=== PATIENT | female | born 1995 | race Caucasian/White ===

== ENCOUNTER 2017-08-21 20:54 | Emergency (ER) | payer BC, OTHER, SELFPAY ==
[2017-08-21 21:32] VITALS: BP 113/72; PULSE 101; RESP 15; TEMP 36.8; O2SAT 100; BMI 23.9
[2017-08-22] VITALS: BP 115/75; PULSE 72; RESP 14; O2SAT 100
[2017-08-22] MEDS: SODIUM CHLORIDE 0.9% 1,000 ML 1000 ML IV (00:02)
[2017-08-22] MEDS: ONDANSETRON 4 MG/2 ML INJ IV (00:02)
[2017-08-22 00:06] LABS: Add Manual Diff / Slide Review NO; Basophils Percent Auto 0.8 % (0-2); Eosinophils Percent Auto 5.3 % (2-4); Hematocrit 39.1 % (36-46); Hemoglobin 13.4 g/dL (12.0-16.0); Lymphocytes Percent Auto 39.6 % (25-40); Mean Corpuscular HGB Conc 34.2 % (30-36); Mean Corpuscular Volume 90.6 fL (80-100); Monocytes Percent Auto 7.1 % (3-14); Neutrophils Absolute Auto 4100 /uL (3000-5900); Neutrophils Percent Auto 47.2 % (50-75); Platelet Count 218 X10^3/uL (150-400); Red Blood Cell Count 4.31 X10^6/uL (4.0-5.2); Red Cell Distribution Width 12.2 % (11.6-14.8); White Blood Cell Count 8.8 X10^3/uL (4.5-11.0)
[2017-08-22 00:19] LABS: Alanine Aminotransferase 23 IU/L (9-52); Albumin 4.1 g/dL (3.5-5.0); Albumin Globulin Ratio 1.3 (1.0-2.8); Alkaline Phosphatase 38 U/L (38-126); Aspartate Aminotransferase 24 IU/L (14-36); BUN Creatinine Ratio 14.3 (6-22); Bilirubin Total 0.8 mg/dL (0.2-1.3); Blood Urea Nitrogen 10 mg/dL (7-17); Calcium 9.2 mg/dL (8.4-10.2); Carbon Dioxide 20 mmol/L (22-32); Chloride 107 mmol/L (98-107); Estimated Glomerular Filt Rate > 60.0 mL/min (>60); Globulin 3.1 g/dL (1.7-4.1); Glucose 89 mg/dL (70-100); HEMOLYSIS 27 (0-50); Lipase 51 U/L (23-300); Sodium 140 mmol/L (137-145); Total Protein 7.2 g/dL (6.3-8.2)
--- NOTE | 2017-08-22 02:20 | PC.NURSE ---
at for evaluation
--- NOTE | 2017-08-22 02:37 | DI.CT.S_ITS ---
PROCEDURE: CT ABDOMEN PELVIS W CON INDICATIONS: low abdominal and right sided pain TECHNIQUE: After the administration of intravenous contrast, 5 mm thick sections acquired from the diaphragm to the symphysis. 5 mm coronal and sagittal reformats were acquired. For radiation dose reduction, the following was used: automated exposure control, adjustment of mA and/or kV according to patient size. COMPARISON: None. FINDINGS: Image quality: Excellent. ABDOMEN: Lung bases: Lung bases are clear. Heart size is normal. Solid organs: Liver is normal in size and enhancement. Gallbladder contains a 1.1 cm gallstone.. Biliary system is non dilated. Pancreas enhances normally. Spleen is normal in size and enhancement. No adrenal nodules. Kidneys demonstrate normal size and enhancement, without hydronephrosis. Peritoneum and bowel: Bowel loops demonstrate normal wall thickness and caliber. No free air. Trace free fluid noted in the cul-de-sac of the pelvis which is within physiologic limits. The appendix is normal. Nodes and vessels: No retroperitoneal or mesenteric adenopathy by size criteria. Aorta and inferior vena cava are normal in size. Miscellaneous: No ventral hernias. PELVIS: Genitourinary: Bladder wall thickness is normal. 2.7 cm right adnexal region cyst. 2.0 cm left adnexal region cyst. Miscellaneous: No inguinal hernias or adenopathy. Bones: No suspicious bony lesions. No vertebral body compression fractures. IMPRESSION: 1. The appendix is normal. 2. Cholelithiasis. If there is clinical concern for cholecystitis, then abdominal ultrasound should be considered for further evaluation. 3. Bilateral adnexal cysts. Dictated by: Jaquelin Pacheco MD, PhD on 08/22/2017 at 7:37 Approved by: Jaquelin Pacheco MD, PhD on 08/22/2017 at 7:42
--- NOTE | 2017-08-22 05:33 | ED_ITS ---
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 Patient denies fevers, chills, continues pass flatus and stool at baseline. M/S/F/SocHx notable for: please see HPI; remainder reviewed with patient and in chart. ROS: Negative constitutional, eye, cardiovascular, pulmonary, GI, , MSK, skin , neurologic, psychiatric, endocrine unless noted in the HPI. Exam Gen: Pleasant, non-toxic appearing, resting comfortably. HEENT: NC, AT, PEERL, EOMI. Resp: Clear to auscultation bilaterally, normal work of breathing, no accessory muscle usage. Card: Regular rate and rhythm with no murmurs, rubs, or gallops, extremities warm and well perfused. GI: mild right greater than left lower abdominal tenderness palpation, remainder of abdomen nontender to palpation, no rebound, no guarding. : No suprapubic tenderness to palpation. MSK: No visible deformities, strength and tone without visually appreciable deficit. Skin: Normal color with no visible lesions. Neuro: AO x 3, no facial asymmetry, vision and hearing WNL. Psych: Mood and affect appropriate. Labs / Imaging: negative urine test. UA negative nitrate, negative leukocyte esterase WBC 8.8, HB 13.4, sodium 140, potassium 4.0, total bilirubin 0.8, AST 24, ALT 23 , ALP 38, lipase 51 CT abdomen/pelvis: cholelithiasis without evidence of cholecystitis. MDM Previous chart, nursing note, labs, imaging, and vitals reviewed. 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 DDx: acute appendicitis, mesenteric adenitis, biliary disease pancreatitis, UTI , ureterolithiasis, gastritis, Gerd, Evaluation: CT abdomen and pelvis without evidence of acute disease, CBC, CMP, lipase WNL, UA without evidence infection, negative urine test. Repeat evaluation patient noted that instead of lower abdominal and right-sided discomfort she was experiencing were predominantly nausea and heartburn type feeling of last 4 days. Trial of ranitidine and Maalox recommended. Patient discharged with PCP follow-up recommended. Impression: suspected GERD (please reference below for remainder of encounter information) Related Data Previous Rx's Medication Instructions Recorded levonorgestrel-ethinyl estrad 1 tab PO QDAY #3 packet 09/24/16 [Lutera (28)] meclizine 25 mg PO TID PRN #21 tab 05/08/17 Allergies Allergy/AdvReac Type Severity Reaction Status Date / Time No Known Drug Allergies Allergy Verified 08/21/17 21:32 PFSH Family History Father Age: 44 High cholesterol Grandfather Heart disease Hypertension Grandmother Age: 65 Lung cancer Social History Smoking Status: Never smoker Exam Initial Vital Signs Initial Vital Signs: Vital Signs Temperature 98.2 F 08/21/17 21:32 Pulse Rate 101 H 08/21/17 21:32 Respiratory Rate 15 08/21/17 21:32 Blood Pressure 113/72 08/21/17 21:32 Pulse Oximetry 100 08/21/17 21:32 Course Orders Ordered: ED Orders 08/22/17 00:01 Complete Blood Count AUTO DIFF Stat Comprehensive Metabolic Panel Stat Lipase Stat 08/22/17 02:37 CT abdomen pelvis w con Stat Discontinued Medications Sodium Chloride (Normal Saline 0.9%) 1,000 mls @ 1,000 mls/hr IV BOLUS ONE Stop: 08/22/17 01:00 Last Infusion: 08/22/17 01:05 Dose: 1,000 mls/hr Admin: 08/22/17 00:02 Dose: 1,000 mls/hr Ondansetron HCl (Zofran) 4 mg IV NOW ONE Stop: 08/22/17 00:01 Last Admin: 08/22/17 00:02 Dose: 4 mg Vital Signs - 8 hr 07/05/18 00:00 Pulse Rate 72 Respiratory Rate 14 Blood Pressure [Left Arm] 115/75 Pulse Oximetry 100 MDM - Abdominal Pain Lab Data Result diagrams: 08/22/17 00:01 08/22/17 00:01 Lab Results 08/22/17 08/22/17 Range/Units 00:01 00:01 WBC 8.8 (4.5-11.0) X10^3/uL RBC 4.31 (4.0-5.2) X10^6/uL Hgb 13.4 (12.0-16.0) g/dL Hct 39.1 (36-46) % MCV 90.6 (80-100) fL MCH 31.0 (26-34) PG MCHC 34.2 (30-36) % RDW 12.2 (11.6-14.8) % Plt Count 218 (150-400) X10^3/uL Neut % (Auto) 47.2 L (50-75) % Lymph % (Auto) 39.6 (25-40) % Crockett % (Auto) 7.1 (3-14) % Eos % (Auto) 5.3 H (2-4) % Baso % (Auto) 0.8 (0-2) % Neut # (Auto) 4100 (5965-2148) /uL Sodium 140 (137-145) mmol/L Potassium 4.0 (3.4-5.1) mmol/L Chloride 107 (98-107) mmol/L Carbon Dioxide 20 L (22-32) mmol/L BUN 10 (7-17) mg/dL Creatinine 0.70 (0.52-1.04) mg/dL Estimated GFR > 60.0 (>60) mL/min BUN/Creatinine Ratio 14.3 (6-22) Glucose 89 (70-100) mg/dL Calcium 9.2 (8.4-10.2) mg/dL Total Bilirubin 0.8 (0.2-1.3) mg/dL AST 24 (14-36) IU/L ALT 23 (9-52) IU/L Alkaline Phosphatase 38 (38-126) U/L Total Protein 7.2 (6.3-8.2) g/dL Albumin 4.1 (3.5-5.0) g/dL Globulin 3.1 (1.7-4.1) g/dL Albumin/Globulin Ratio 1.3 (1.0-2.8) Lipase 51 (23-300) U/L Point of care testing: Point of Care Testing Test Results Negative Urine Dip Bedside Urine Glucose Negative Bedside Urine Bilirubin - Negative Bedside Urine Ketone - Negative Urine Specific Soldier 1.020 Bedside Urine Occult Blood - Negative Bedside Urine pH 6.0 Bedside Urine Protein - Negative Bedside Urine Urobilinogen - Negative Bedside Urine Nitrite - Negative Bedside Urine Leukocytes - Negative Esterase Discharge Plan Departure Prescriptions: No Action levonorgestrel-ethinyl estrad [Lutera (28)] 1 EACH tablet 1 tab PO QDAY Qty: 3 RF: 3 meclizine 25 MG tablet 25 mg PO TID PRNQty: 21 RF: 0
[2017-08-22 05:54] VITALS: BP 102/59; PULSE 64; RESP 17; TEMP 36.3; O2SAT 98
--- NOTE | 2017-08-22 05:56 | PC.NURSE ---
[id number] velasco still awaiting the ct results pt. aware
== END 2017-08-22 05:55 | disposition home or self-care (01) ==
PROVIDERS: Emergency Provider Emergency Medicine
DX: R10.9 Unspecified abdominal pain (principal)
CPT/HCPCS: 36591; 74177; 80053; 81003; 81025; 83690; 85025; 96361; 96374; 99283; 99285; J2405; Q9967

== ENCOUNTER → 2017-08-27 16:19 | Outpatient (CLI) | payer BC, OTHER, SELFPAY ==
[2017-08-27 19:38] LABS: Urine N gonorrhoeae NOT DETECTED
[2017-08-27 19:45] LABS: Urine Chlamydia NOT DETECTED
[2017-09-02 16:10] LABS: Rapid Plasma Reagin NON-REACTIVE
== END ==
PROVIDERS: Visit Provider Nurse Practitioner Family
DX: R10.30 Lower abdominal pain, unspecified (principal)
CPT/HCPCS: 36415; 86592; 87491; 87591

== ENCOUNTER → 2017-09-06 13:04 | Outpatient (CLI) | payer BC, OTHER, SELFPAY ==
--- NOTE | 2017-09-06 13:05 | DI.US.S_ITS ---
PROCEDURE: US PELVIC COMPLETE INDICATIONS: PAIN TECHNIQUE: Real-time scanning was performed of the pelvic organs, with image documentation. Additional endovaginal scanning was necessary due to incomplete visualization of the adnexal and endometrial structures by transabdominal scanning. COMPARISON: None. FINDINGS: Transabdominal scanning: Limited scanning through the kidneys shows no hydronephrosis. The kidneys measure 10.1 CM right and 10.6 CM left. No pathologic free abdominal or pelvic fluid. Endovaginal scanning: Uterus: Uterus is normal in size at 4.5 x 4.5 x 6.4 cm. The endometrium measures 6.4 mm in combined thickness. Ovaries: The right ovary measures 23 x 25 x 38 mm and contains a simple cyst measuring 21 x 24 x 34 mm. The left ovary appears normal measuring 11 x 14 x 21 mm. IMPRESSION: 1. Normal uterus and left ovary. Right ovary contains a 3.4 cm simple cyst. Dictated by: Sukhjinder Brown M.D. on 09/06/2017 at 15:23 Approved by: Sukhjinder Brown M.D. on 09/06/2017 at 15:24
== END ==
PROVIDERS: Visit Provider Nurse Practitioner Family
DX: R10.30 Lower abdominal pain, unspecified (principal); N83.291 Other ovarian cyst, right side
CPT/HCPCS: 76830; 76856

== ENCOUNTER → 2019-01-01 15:19 | Outpatient (CLI) | payer BC, OTHER, SELFPAY ==
--- NOTE | 2019-01-01 15:20 | DI.US.S_ITS ---
ULTRASOUND OF RIGHT AXILLA: 01/01/2019 CLINICAL: Focal right axilla pain. No prior exams were available for comparison. Real-time ultrasound of the right axilla was performed on the area of interest. No significant abnormalities were seen sonographically in the right axilla. IMPRESSION: NEGATIVE There is no sonographic evidence of malignancy. There is no abnormality seen in the right axilla to correspond with the pain in the right axilla, however, clinical followup is recommended. This exam was interpreted at Station ID: [id number]. Electronically Signed By: Lazarus gonzalez/melanie:01/01/2019 15:45:01 letter sent: Clinical Evaluation Ultrasound BI-RADS: 1 Negative
== END ==
PROVIDERS: PCP Family Medicine; Visit Provider Family Medicine
DX: M79.621 Pain in right upper arm (principal)
CPT/HCPCS: 76882

== ENCOUNTER → 2020-10-27 17:39 | Outpatient (CLI) | payer BC, SELFPAY ==
[2020-10-27 18:29] LABS: COVID19 -Nasal RAPID POSITIVE (Negative)
== END ==
PROVIDERS: PCP Family Medicine; Visit Provider Nurse Practitioner
DX: U07.1 COVID-19 (principal)
CPT/HCPCS: 87635

== ENCOUNTER → 2022-10-08 12:53 | Outpatient (CLI) | payer BC, SELFPAY ==
[2022-10-08 13:38] LABS: Add Manual Diff / Slide Review NO; Basophils Absolute Auto 0 /uL (0-100); Basophils Percent Auto 0.5 % (0-2); Eosinophils Absolute Auto 100 /uL (0-450); Eosinophils Percent Auto 1.4 % (2-4); Hematocrit 35.9 % (36-46); Hemoglobin 12.5 g/dL (12.0-16.0); Lymphocytes Absolute Auto 1900 /uL (1100-4500); Lymphocytes Percent Auto 19.3 % (25-40); Mean Corpuscular HGB Conc 34.9 % (30-36); Mean Corpuscular Hemoglobin 30.7 PG (26-34); Monocytes Absolute Auto 600 /uL (0-900); Monocytes Percent Auto 6.1 % (3-14); Neutrophils Absolute Auto 7300 /uL (1500-7000); Neutrophils Percent Auto 72.7 % (50-75); Platelet Count 265 X10^3/uL (150-400); Red Blood Cell Count 4.08 X10^6/uL (4.0-5.2); Red Cell Distribution Width 12.5 % (11.6-14.8)
[2022-10-08 14:06] LABS: Appearance Urine UA CLEAR; Bilirubin Urine UA NEGATIVE (NEGATIVE); Color Urine UA YELLOW; Glucose Urine UA NEGATIVE (Negative); Ketones Urine UA NEGATIVE (NEGATIVE); Leukocyte Esterase Urine UA NEGATIVE (NEGATIVE); Nitrite Urine UA NEGATIVE (Negative); Occult Blood Urine UA NEGATIVE (Negative); Protein Urine UA NEGATIVE (Negative); Urobilinogen Urine UA 0.2 E.U./dL (0.2)
[2022-10-08 14:18] LABS: pH Urine UA 6.5 (4.5-8.0)
[2022-10-08 14:51] LABS: Hepatitis B Surface Antigen NEGATIVE s/c (NEGATIVE); Rubella Antibody IgG 15.4 IU/mL (>15)
[2022-10-08 15:14] LABS: HIV 1 & 2 Ab/Ag 4th Gen Combo NEGATIVE (NEGATIVE); Hep C Virus Ab w/Reflex Quant NEGATIVE s/c (NEGATIVE)
[2022-10-09 06:27] LABS: RPR Screen Non Reactive (Non Reactive)
[2022-10-09 12:36] LABS: Varicella IgG Antibody 1545 index (Immune >165)
== END ==
PROVIDERS: PCP Family Medicine; Referring Provider Family Medicine; Visit Provider Family Medicine
DX: Z34.01 Encounter for supervision of normal first pregnancy, first trimester (principal)
CPT/HCPCS: 36415; 80055; 81003; 86787; 86803; 86850; 86900; 86901; 87086; 87389

== ENCOUNTER → 2022-12-06 15:59 | Outpatient (CLI) | payer BC, SELFPAY ==
[2022-12-08 19:57] LABS: AFP, Serum 28.5 ng/mL (.); Estriol, Free 1.72 ng/mL (.); Inhibin A, Dimeric 238.42 pg/mL (.); Maternal Ethnicity Caucasian (.); Maternal Weight 153 lbs (.); Number of Fetuses No (.); OSBR Risk 1 IN 10000 (.); Results Report (.); Test Results *Screen Negative* (.); hCG, MoM 1.63 (.)
== END ==
PROVIDERS: PCP Family Medicine; Referring Provider Obstetrics & Gynecology; Visit Provider Obstetrics & Gynecology
DX: Z34.02 Encounter for supervision of normal first pregnancy, second trimester (principal); Z3A.16 16 weeks gestation of pregnancy
CPT/HCPCS: 36415; 82105; 82677; 84702; 86336

== ENCOUNTER → 2022-12-24 08:04 | Outpatient (CLI) | payer BC, SELFPAY | PROVIDERS: PCP Family Medicine; Visit Provider Nurse Practitioner Family | DX: J02.9 Acute pharyngitis, unspecified (principal) | CPT/HCPCS: 87070; 87185 ==

== ENCOUNTER → 2023-01-01 14:48 | Outpatient (CLI) | payer BC, SELFPAY ==
--- NOTE | 2023-01-01 14:49 | DI.US.S_ITS ---
PROCEDURE: US OB >= 14 WEEKS FETUS INDICATIONS: ANATOMY OUTSIDE/PRIOR DATING DATA: Last menstrual period (LMP): 08/12/2022 LMP-based estimated date of delivery (BOWEN): 05/19/2023. First dating scan (date and location): 10/08/2022. Estimated date of delivery (BOWEN) from first dating scan: 05/16/2023. TECHNIQUE: Real-time scanning was performed of the fetus, with image documentation and biometric measurements. COMPARISON: None. FINDINGS: General: A single living intrauterine gestation is present. Presentation: Vertex. Placenta: Placental position is anterior , without previa. Amniotic fluid index: 18.6 cm, normal range is 5-24 cm. Single deepest vertical pocket is 5.9 cm. heart rate: 141 beats per minute. Maternal cervical canal: 5.5 cm long. Normal lower limit is 2.5 cm. biometrics: Biparietal diameter: 21 weeks 6 days Head circumference: 21 weeks 3 days Abdominal circumference: 20 weeks 4 days Femur length: 21 weeks 4 days Clinically estimated gestational age: 20 weeks 2 days Composite gestational age from present scan: 21 weeks 3 days Estimated weight and percentile: 402 g; 80 percentile Anatomic survey: Neuro: Ventricles are non-dilated at less than 10 mm. Cisterna magna is normal at 3-11 mm. Cerebellum is normal in size and morphology. Nuchal skin fold: Normal at less than 6 mm between 14-21 weeks gestational age. Face: The facial profile as suboptimally visualized and micrognathia cannot entirely be excluded. Spine: No evidence for spina bifida. Mild irregularity seen on the sagittal view of the lower cervical spine of unclear etiology. Heart: 4-chambered heart is present, with normal ventricular outflow tracts. Diaphragm: Diaphragm is intact. Stomach: Left-sided stomach is present. Kidneys: No hydronephrosis. Normal is less than 5 mm in 2nd trimester, less than 7 mm in 3rd trimester. Cord: 3-vessel cord has orthotopic insertion. Marginal placental cord insertion site 1.7 cm from the right placental edge. Bladder: Normal in size. Extremities: All 4 extremities identified. IMPRESSION: 1. Single living IUP redemonstrated and interval growth is upper limits of normal. 2. Facial profile suboptimally visualized and micrognathia cannot entirely be excluded. Follow-up recommended. 3. Mild irregularity seen on the sagittal view involving the lower cervical spine which may be artifactual. Attention on follow-up is recommended. We strive to produce accurate, complete, and clear reports of imaging services. To assist us in improving patient care, this report was composed using standard report templates and voice recognition software. Therefore, it may contain abnormal punctuation, insertions and/or omissions. Occasional wrong-word or sound-alike substitutions may occur. Though we review the report and make efforts to correct it, we do recommend that the report be read carefully in proper context to recognize any text inaccuracies. Dictated by: Ashutosh COFFEY Interpreted: Maylin Emery MD on 01/03/2023 at 15:18 Transcribed by: HODA on 01/03/2023 at 15:25 Approved by: Maylin Emery M.D. on 01/03/2023 at 22:41
== END ==
PROVIDERS: PCP Family Medicine; Referring Provider Obstetrics & Gynecology; Visit Provider Obstetrics & Gynecology
DX: Z34.02 Encounter for supervision of normal first pregnancy, second trimester (principal); Z3A.21 21 weeks gestation of pregnancy
CPT/HCPCS: 76811

== ENCOUNTER → 2023-01-25 16:52 | Outpatient (CLI) | payer BC, SELFPAY ==
--- NOTE | 2023-01-25 16:53 | DI.US.S_ITS ---
PROCEDURE: US OB FOLLOW UP INDICATIONS: Incomplete 20 week anatomy scan OUTSIDE/PRIOR DATING DATA: Last menstrual period (LMP): 08/12/2022. LMP-based estimated date of delivery (BOWEN): 05/19/2023. First dating scan (date and location): 10/08/2022 at . Estimated date of delivery (BOWEN) from first dating scan: 05/16/2023. The calculations are made using the working BOWEN of 05/19/2023. TECHNIQUE: Real-time scanning was performed of the fetus, with image documentation and biometric measurements. COMPARISON: [facility], , OB >= 14 WEEKS FETUS, 01/01/2023, 15:33. FINDINGS: General: A single living intrauterine gestation is present. Presentation: Vertex. Placenta: Placental position is anterior, without previa. Amniotic fluid index: 14.8 cm, normal range is 5-24 cm. Single deepest vertical pocket is 4.6 cm. heart rate: 147 beats per minute. Maternal cervical canal: 3.4 cm long. Normal lower limit is 2.5 cm. biometrics: Not performed Clinically estimated gestational age: 23 weeks 5 days Other: face: facial structures including facial profile, lips and orbits are grossly normal. spine: Hypoechoic area in C7 persists. Placental cord insertion: Cord insertion now measures 2.1 cm from the placental edge. IMPRESSION: 1. A single living intrauterine gestation redemonstrated. 2. Normal facial profile, orbits and lips. 3. Hypoechoic area in the area of C7 persists. Clinical significance uncertain. 4. Cord insertion to placenta now measures 2.1 cm from the placental edge. We strive to produce accurate, complete, and clear reports of imaging services. To assist us in improving patient care, this report was composed using standard report templates and voice recognition software. Therefore, it may contain abnormal punctuation, insertions and/or omissions. Occasional wrong-word or sound-alike substitutions may occur. Though we review the report and make efforts to correct it, we do recommend that the report be read carefully in proper context to recognize any text inaccuracies. Dictated by: Vj Juarez M.D. on 01/27/2023 at 20:00 Approved by: Vj Juarez M.D. on 01/28/2023 at 9:28
== END ==
PROVIDERS: PCP Family Medicine; Referring Provider Obstetrics & Gynecology; Visit Provider Obstetrics & Gynecology
DX: Z34.92 Encounter for supervision of normal pregnancy, unspecified, second trimester (principal); Z3A.23 23 weeks gestation of pregnancy
CPT/HCPCS: 76816

== ENCOUNTER → 2023-02-15 09:30 | Outpatient (CLI) | payer BC, SELFPAY ==
[2023-02-15 11:24] LABS: Hematocrit 34.4 % (36-46)
[2023-02-15 11:40] LABS: GTT (PREG) 1 Hour PP 50gm Dose 118 mg/dL (76-139)
== END ==
PROVIDERS: PCP Family Medicine; Referring Provider Obstetrics & Gynecology; Visit Provider Obstetrics & Gynecology
DX: O26.899 Other specified pregnancy related conditions, unspecified trimester (principal); Z3A.26 26 weeks gestation of pregnancy; Z67.91 Unspecified blood type, Rh negative
CPT/HCPCS: 36415; 82950; 85014; 85018; 86850

== ENCOUNTER 2023-04-15 15:28 | Observation (INO) | payer BC, SELFPAY ==
[2023-04-15 16:17] LABS: Appearance Urine UA CLEAR; Bilirubin Urine UA NEGATIVE (NEGATIVE); Color Urine UA YELLOW; Glucose Urine UA NEGATIVE (Negative); Ketones Urine UA NEGATIVE (NEGATIVE); Leukocyte Esterase Urine UA NEGATIVE (NEGATIVE); Nitrite Urine UA NEGATIVE (Negative); Occult Blood Urine UA NEGATIVE (Negative); Protein Urine UA NEGATIVE (Negative); Specific Gravity Urine UA <=1.005 (1.000-1.035); Urobilinogen Urine UA 0.2 E.U./dL (0.2)
[2023-04-15 16:18] LABS: pH Urine UA 5.5 (4.5-8.0)
[2023-04-15 16:26] LABS: Bacteria Urine Few (2-10); Culture Indicated Urine Cult Not Indicated; RBC Urine 0-1/HPF (0-5/HPF); Squamous Epithelial Cell Urine 10-30 /HPF (0-5/HPF); Urine Volume 10mL (spun); WBC Urine 1-5/HPF (0-5/HPF)
[2023-04-15] MEDS: NIFEdipine 10 MG CAPSULE PO ×4 (16:40→17:51)
[2023-04-15] MEDS: TERBUTALINE 1 MG/ML VIAL 0.25 MG SUBCUT (18:28)
== END 2023-04-15 19:33 | disposition home or self-care (01) ==
LOC: LABOR 15:29
PROVIDERS: Admitting Provider Obstetrics & Gynecology; PCP Family Medicine; Referring Provider Obstetrics & Gynecology; Visit Provider Obstetrics & Gynecology
DX: O60.03 Preterm labor without delivery, third trimester (principal); Z3A.35 35 weeks gestation of pregnancy
CPT/HCPCS: 59025; 59050; 81001; 96372; G0378; G0379

== ENCOUNTER → 2023-04-24 07:52 | Outpatient (CLI) | payer BC, SELFPAY ==
[2023-04-25 12:32] LABS: Strep Grp B PCR NEG for Grp B Strep
== END ==
PROVIDERS: PCP Family Medicine; Visit Provider Obstetrics & Gynecology
DX: Z34.03 Encounter for supervision of normal first pregnancy, third trimester (principal); Z3A.36 36 weeks gestation of pregnancy
CPT/HCPCS: 87653

== ENCOUNTER → 2023-04-29 13:58 | Outpatient (CLI) | payer BC, SELFPAY ==
--- NOTE | 2023-04-29 | DI.US.S_ITS ---
PROCEDURE: US OB LIMITED INDICATIONS: LGA OUTSIDE/PRIOR DATING DATA: Last menstrual period (LMP): 08/12/2022. LMP-based estimated date of delivery (BOWEN): 05/19/2023. First dating scan (date and location): 10/08/2022. Estimated date of delivery (BOEWN) from first dating scan: 05/16/2023. The calculations are made using the clinical BOWEN of 05/19/2023. TECHNIQUE: Real-time scanning was performed of the fetus, with image documentation. COMPARISON: [facility], , OB FOLLOW UP, 01/25/2023, 17:21. FINDINGS: A single living intrauterine gestation is present. Presentation: Vertex. Placenta: Placental position is anterior, without previa. Amniotic fluid index: 24 cm, normal range is 5-24 cm. Single deepest vertical pocket is 10.2 cm. heart rate: 128 beats per minute. Maternal cervical canal: Not assessed cm long. BPD: 9.5 cm 38 weeks 5 days HC: 34 cm 39 weeks 1 day AC: 35 cm 38 weeks 4 days FL: 7.7 cm 39 weeks 4 days Clinically estimated gestational age: 37 weeks 1 day Estimated gestational age from initial scan: 39 weeks 0 days estimated weight 3616 g, 92nd percentile IMPRESSION: Single live intrauterine with gestational age of 39 weeks 0 days. Fluid is prominent measuring 24 cm. Recommend follow-up for polyhydramnios. Dictated by: Maylin Emery M.D. on 04/29/2023 at 16:51 Approved by: Maylin Emery M.D. on 04/29/2023 at 16:55
== END ==
LOC: US 13:59
PROVIDERS: PCP Family Medicine; Referring Provider Obstetrics & Gynecology; Visit Provider Obstetrics & Gynecology
DX: O26.843 Uterine size-date discrepancy, third trimester (principal); Z3A.39 39 weeks gestation of pregnancy
CPT/HCPCS: 76815

== ENCOUNTER 2023-05-13 15:51 | Inpatient (IN) | payer BC, SELFPAY ==
--- NOTE | 2023-05-13 18:13 | PM.OBHP.1 ---
OB HPI Date/Time Date of admission: 05/13/23 Date Patient Seen: 05/13/23 Time Patient Seen: 17:13 History of Present Condition Chief complaint: ROM : 1 Para: 0 Estimated Date of Delivery: 05/19/23 Estimated Gestational Age (weeks): 39w1d Narrative: Lillian Patricio is a 28 year old F at 39w1d EGA presenting with ROM at home. She laid down in bed when she noticed a large gush of water. ROM was at 15:18, fluid was clear. She is feeling occassional tightening of the abdomen but doesnt feel that this is much different than Chris Quarles. She is hoping to labor without epidural and wants to avoid Pitocin if possible. has been complicated by LGA and RH negative status s/p Rhogam at 28 wks. EFW was 3616g at 37w1d GA, placing her at 92%ile. ADY was 24cm (upper limit of normal) at that time and a f/up US was recommend to assess for risk of polyhydramnios. Indications Other reason(s) for admission: Rupture of membranes History of Present care: good care Dating criteria: LMP confirmed by 1st trimester US Ultrasounds: normal 1st trimester US and normal mid trimester US Abnormal ultrasound findings: EFW was 3616g at 37w1d GA, placing her at 92%ile. ADY was 24cm (upper limit of normal) at that time and a f/up US was recommend to assess for risk of polyhydramnios. Obstetrical complications: none Medical complications: none Preadmission Labs Blood type: 0 (-) negative -: GBS status: negative, HBsAG: negative and HIV: negative -: Chlamydia screen: not detected and Gonorrhea screen: not detected -: Rubella: immune and Varicella: immune HCT: 12 HCAB: negative 1 hr GTT: 118 Evaluation Evaluation Baseline heart rate: 130 Variability: Moderate (11-25) monitor accelerations: Present Monitor Decelerations: Absent Contraction Frequency (minutes): 10 Uterine Contraction Intensity: Moderate Category of Tracing: Reactive Status: Category l Dilation (cm): 1 Effacement (%): 80 Dilation: 1-2 cm Effacement: >/=80% station: -1 Position of cervix: posterior Consistency: soft Woodall score: 8 Comments: Nitrazine positive, grossly ruptured PFSH Medical History Allergies Asthma (2001) Chicken pox Fractures (2007) Gastroschisis (93) HPV (human papilloma virus) infection (~2016) Ovarian cyst (~2018) Shoulder pain (2014) Surgical History Anesthesia 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) History of tonsillectomy Family History Father Age: 49 High cholesterol Mental health problem Grandfather Heart disease Hypertension Lung cancer Mesothelioma Grandmother Age: 70 Lung cancer Grandmother Diabetes mellitus Grandfather Heart disease Social History marital status: number of children: 0 household members: spouse and none lives independently: Yes caregiver/support person: No pets and animals: Yes (2 cats, 1 dog, managing litter boxes) education level: college occupational status: employed current occupational exposures/hazards: Yes special dusty needs: No travel history: recent seatbelt use: always helmet use: Yes water heater temp set < 120 deg: Yes working smoke detector in home: Yes fire extinguisher in home: Yes carbon monox detector in home: Yes firearms in home: Yes firearms unloaded and locked: Yes do you feel safe at home: Yes Smoking Status: Never smoker second hand exposure: No alcohol intake: former substance use type: does not use during the past year weight has: remained stable well-balanced diet: about half the time daily servings fruits/ve-4 caffeine: Yes (AM cup coffee usually) Type(s) of exercise: walking frequency: daily Meds Home Medications and Allergies Home Medications Medication Instructions Recorded Confirmed Type vitamin-ferrous sulfate tab PO 09/28/22 05/07/23 History 27 mg iron-folic acid 0.8 mg tablet albuterol sulfate 90 mcg/actuation 2 puff inhalation Q4-6H PRN asthma 10/08/22 05/07/23 Rx aerosol inhaler #8.5 grams cefdinir 300 mg capsule 300 mg PO BID #10 caps 12/26/22 05/07/23 Rx Allergies Allergy/AdvReac Type Severity Reaction Status Date / Time No Known Drug Allergies Allergy Verified 05/07/23 14:47 Review of Systems Review of Systems Narrative: No vaginal bleeding No discharge Endorses large gush of fluid OB Exam Vital signs Blood Pressure: 124/81 Pulse Rate: 98 Temperature: 36.4 F Narrative Exam Narrative: Gen: well appearing, comfortable, NAD, walking around hallways Abd: gravid, non-tender Pulm: breathing comfortbaly on RA CV: warm and well perfused US: Cephalic on bedside US spine on maternal left Assessment and Plan Assessment and Plan Assessment and Plan narrative: 28 year old F at 39w1d EGA presenting for SROM. She is lazarus minimally. ROM was at 15:18 this afternoon. She has made minimal cervical change. She wishes to avoid medications for now. Discussed continuing to walk with plans to recheck at 6 hours after ROM. At that time, if no cervical change will start with cytotec and if pt amenable, start Pitocin. Discussed concerns with this and would prefer to start with Pit if she is amenable but will determine plan based on SVE. - Admit to LD - Intermittent monitoring - CBC, TS - Monitor temp, if febrile will start Abx - GBS negative, no ABx for now - Repeat SVE at 9pm
[2023-05-13 18:31] VITALS: BP 124/81
[2023-05-13 18:42] VITALS: BP 124/81; PULSE 98; TEMP 2.4; TEMP 36.4
[2023-05-13 20:27] LABS: Add Manual Diff / Slide Review NO; Basophils Absolute Auto 0 /uL (0-100); Basophils Percent Auto 0.4 % (0-2); Eosinophils Absolute Auto 400 /uL (0-450); Eosinophils Percent Auto 2.9 % (2-4); Hematocrit 38.3 % (36-46); Lymphocytes Absolute Auto 2100 /uL (1100-4500); Lymphocytes Percent Auto 17.9 % (25-40); Mean Corpuscular Hemoglobin 30.8 PG (26-34); Mean Corpuscular Volume 90.6 fL (80-100); Monocytes Absolute Auto 900 /uL (0-900); Monocytes Percent Auto 7.8 % (3-14); Neutrophils Absolute Auto 8500 /uL (1500-7000); Platelet Count 185 X10^3/uL (150-400); Red Blood Cell Count 4.23 X10^6/uL (4.0-5.2); Red Cell Distribution Width 14.1 % (11.6-14.8)
[2023-05-14] MEDS: LACTATED RINGERS 1,000 ML 100 ML IV ×2 (04:00→15:49)
[2023-05-14] MEDS: fentaNYL 100 MCG/2 ML INJ 50 MCG IV (06:52)
--- NOTE | 2023-05-14 07:30 | PM.OBPNLAB ---
Date/Time Date Patient Seen: 05/14/23 Time Patient Seen: 07:16 Pain Control Pain control: narcotic analgesia Comments: Patient has been awake all night and is exhausted. She has received a single dose of IV fentanyl with some relief lasting through about 2 contractions. Discussed pain relief options with the patient and she would like to have an epidural placed both for pain relief and to hopefully facilitate descent and dilatation. Pelvic Exam Dilation (cm): 3 Effacement (%): 80 station: -1 Amniotic membrane status: Ruptured Contractions Date/Time contractions began: 05/13/2023, 230 Contractions on admission: irregular Monitor mode: External Contraction frequency (min): 5 Contraction pattern: Regular Contraction phase: Resting Contraction intensity: Moderate Status status: Category l Heart Rate Baseline: 155 Monitor Accelerations: Present Monitor Decelerations: Absent Monitor Variability: Moderate Assessment and Plan Assessment: other (Latent phase labor with ROM x 16-17 hours) Plan: other Comments: Will request epidural placement, reassess contraction pattern and dilation, likely start Pitocin augmentation once patient has adequate pain relief.
[2023-05-14] MEDS: FENT 2MCG/ML BUPIV 0.125% EPI 200 MCG/100 ML PLAST..BAG 6 MCG EPIDURAL (07:52)
--- NOTE | 2023-05-14 09:08 | P.PCN_ITS ---
Regional Block Pre-procedure Procedure: Continuous Lumbar Epidural for L&D Attending OB provider: Laura Arambula PMH/ROS narrative: term PROM, no medical complications. ASA Class: II Labs: Hct 38.3 % (36-46) 05/13/23 20:20 Plt Count 185 X10^3/uL (150-400) 05/13/23 20:20 Medications: Current Medications Generic Name Dose Route Start Last Admin Trade Name Freq PRN Reason Stop Dose Admin Calcium Carbonate 1,000 mg 05/13/23 17:35 Calcium Carbonate 500 Mg Tab PO Q4HR PRN Dyspepsia Carboprost Tromethamine 250 mcg 05/13/23 17:35 Carboprost 250 Mcg/Ml Ampul IM Q90M PRN Bleeding Diphenhydramine HCl 25 mg 05/14/23 07:40 Diphenhydramine 50 Mg/Ml Vial IV Q10M PRN Pruritis Fentanyl 50 mcg 05/14/23 06:47 05/14/23 06:52 Fentanyl 100 Mcg/2 Ml Inj IV 50 mcg Q1H PRN Administration Pain, Severe (7-10) Oxytocin/Lactated Ringer's 30 unit in 500 mls @ 200 mls/hr 05/13/23 17:35 Oxytocin Premix IV CONT PRN Bleeding Protocol Tranexamic Acid 1,000 mg/ 100 mls @ 200 mls/hr 05/13/23 17:35 Sodium Chloride IV NOW PRN Bleeding Oxytocin/Lactated Ringer's 30 unit in 500 mls @ 2 mls/hr 05/13/23 17:45 Oxytocin Premix IV TITRATE JOHN Protocol 2 MILLIUNIT/MIN Lactated Ringer's 1,000 mls @ 100 mls/hr 05/13/23 17:45 05/14/23 04:00 Lactated Ringers IV 100 mls/hr CONT JOHN Administration FENT 2MCG/ML BUPIV 0.125% EPI 200 mcg in 100 mls @ 6 mls/hr 05/14/23 07:45 Fentanyl/Bupiv/Ns 2mcg/Ml - 0.125% EPIDURAL CONT JOHN Oxytocin/Lactated Ringer's 30 unit in 500 mls @ 1 mls/hr 05/14/23 08:36 Oxytocin Premix IV TITRATE JOHN Protocol 1 MILLIUNIT/MIN Lidocaine HCl 20 ml 05/13/23 17:35 Lidocaine 1% 20 Ml INJ INTRA-OP PRN Post Delivery Methylergonovine Maleate 0.2 mg 05/13/23 17:35 Methylergonovine 0.2 Mg Tablet PO Q6HR PRN Heavy Bleeding Methylergonovine Maleate 0.2 mg 05/13/23 17:35 Methylergonovine 0.2 Mg/Ml Vial IM NOW PRN Bleeding Misoprostol 800 mcg 05/13/23 17:35 Misoprostol 200 Mcg Tablet NJ NOW PRN Bleeding Misoprostol 400 mcg 05/13/23 17:35 Misoprostol 200 Mcg Tablet SL NOW PRN Bleeding Nalbuphine HCl 2.5 mg 05/14/23 07:40 Nalbuphine 20 Mg/Ml Ampul IV Q10M PRN Pruritis Naloxone HCl 0.2 mg 05/13/23 17:35 Naloxone 0.4 Mg/Ml Vial IV Q2MIN PRN Opiate Reversal Ondansetron HCl 4 mg 05/13/23 17:35 Ondansetron 4 Mg/2 Ml Inj IV Q4HR PRN Nausea And Vomiting Oxytocin 10 unit 05/13/23 17:35 Oxytocin 10 Unit/Ml Vial IM NOW PRN Bleeding Allergies: Allergies Allergy/AdvReac Type Severity Reaction Status Date / Time No Known Drug Allergies Allergy Verified 05/07/23 14:47 Procedure Insertion date: 05/14/23 Insertion time: 07:51 Prep/Local: betadine x3 and 1% lidocaine Interspace: L3-4 Patient position: sitting Needle: 18 gauge SoftLayertead (CSE: 27g Pencan through Hustead, clear CSF, 1mL 0.25% bupiv MPF) Loss of resistance with: saline MISA at (cm): 4 Catheter placed at SKIN (cm): 9 Catheter in SPACE (cm): 5 Insertion: No CSF, No Blood, No Paresthesia with insertion, No Paresthesia with injection and No Test dose reaction Initial Medications TEST DOSE time: 07:52 TEST DOSE: 1.5% lidocaine with epinephrine 1:200k (mL): 3 BOLUS DOSE time: 07:58 BOLUS DOSE (mL): 4 BOLUS DOSE med: other (infusate) Infusion INFUSION: 0.125% bupivacaine and with fentanyl 2 mcg/mL Initial rate (mL/hr): 8 Subsequent interventions: PCEA@8+4 19:15 7mL clinician bolus, increased rate to 10 19:30 Pt satisfied - more comfortable now, goal is manageable pain. 0045 2% lidocaine 15mL for CS. To OR for FTP. Remains at 8cm unchanged. Post-procedure Anesthesia date START: 05/14/23 Anesthesia time START: 07:40 Anesthesia date END: 05/15/23 Anesthesia time END: 00:45 Post-procedure Anesthesia Assessment: Yes CV function: HR/BP stable, Yes Resp function: RR/sat/airway adequate, Yes Post-op hydration adequate, Yes Pain control adequate, Yes Nausea & vomiting absent, Yes Temperature > 36 C, Yes Mental status appropriate and No Anesthesia complications
[2023-05-14] MEDS: ePHEDrine 50 MG/ML VIAL (10:29)
[2023-05-14] MEDS: OXYTOCIN PREMIX 30 UNIT/500 ML PLAST..BAG IV (11:43)
--- NOTE | 2023-05-14 15:41 | PM.OBPNLAB ---
Date/Time Date Patient Seen: 05/14/23 Time Patient Seen: 15:15 Pain Control Pain control: tolerating well and epidural Pelvic Exam Dilation (cm): 5 Effacement (%): 100 station: -1 Amniotic membrane status: Ruptured Comments: Station 0-1, soft, anterior, position indeterminate Contractions Monitor mode: External Pitocin rate (mU/min): 7 Contraction frequency (min): 5 Contraction pattern: Regular Contraction phase: Contraction (Resting 22 mmHg, Peak 55mmHg) Contraction intensity: Moderate Status status: Category l Heart Rate Baseline: 145 Monitor Accelerations: Present Monitor Decelerations: Absent Monitor Variability: Moderate Assessment and Plan Assessment: active labor Plan: continuous present management Comments: Patient has started dilating with augmentation and adequate pain relief via YADIEL. Will titrate pitocin to affect adequate MVU's and observe for progress.
--- NOTE | 2023-05-14 21:56 | PM.OBPNLAB ---
Date/Time Date Patient Seen: 05/14/23 Time Patient Seen: 21:59 Pain Control Pain control: epidural Pelvic Exam Dilation (cm): 8 Effacement (%): 90 station: 0 Amniotic membrane status: Ruptured Contractions Monitor mode: External Pitocin rate (mU/min): 12 Contraction frequency (min): 3 Contraction pattern: Regular Contraction phase: Contraction (Resting 22 mmHg, Peak 55mmHg) Contraction intensity: Strong/Firm Intrauterine tone measurement: 220 Status status: Category l Heart Rate Baseline: 140 Monitor Accelerations: Present Monitor Decelerations: Absent Monitor Variability: Moderate Assessment and Plan Assessment: active labor Plan: continuous present management Comments: 28yo at 39+2wks admitted after PROM for induction of labor. She has had a prolonged induction course, though moving into active labor this afternoon. She has now been at 8cm since 6pm, with adequate MVUs on pitocin. I discussed with the patient that if she is unchanged in 2 more hours, then she meets criteria for arrest of dilation, and I would recommend a . -continue to titrate pitocin for effect -repeat SVE in 2hrs
--- NOTE | 2023-05-15 00:15 | PM.OBPNLAB ---
Date/Time Date Patient Seen: 05/15/23 Time Patient Seen: 00:15 Pain Control Pain control: epidural Comments: moaning through contractions Pelvic Exam Dilation (cm): 8 Effacement (%): 90 station: 0 Amniotic membrane status: Ruptured Contractions Monitor mode: External Pitocin rate (mU/min): 12 Contraction frequency (min): 3 Contraction pattern: Regular Contraction phase: Contraction (Resting 22 mmHg, Peak 55mmHg) Contraction intensity: Strong/Firm Status status: Category l Heart Rate Baseline: 145 Monitor Accelerations: Present Monitor Decelerations: Absent Monitor Variability: Moderate Assessment and Plan Assessment: active labor Plan: Comments: 28yo at 39+3wks admitted for IOL after PROM. She has progressed to 8/90/0, but has remained there over the last 6+ hours despite pitocin augmentation. I discussed with the patient that I would recommend a delivery at this time due to arrest of dilation. Pt agrees to proceed. -2g Ancef, 500mg Azithro for ppx -VTE risk low, SCDs for ppx -PPH medium due to -will notify OR team and move to OR for delivery consent: It was explained to the patient that a section is a surgery to deliver the baby through an incision in the abdominal wall and uterus.? All procedures can be associated with risk and unforeseen complications, which can be immediate or delayed.? Risks and complications of section include, but are not limited to:? infection of the uterus, pelvic organs, or skin; inadvertent injury to internal organs such as the bowel, bladder, or possibly even the baby; blood loss, transfusion, and/or life-threatening hemorrhage requiring hysterectomy; blood clots in the legs, pelvic organs, or lungs; adverse reaction to medications or anesthesia during surgery; development of placenta accreta spectrum in a subsequent ; and increased risk of section in a subsequent .
[2023-05-15] MEDS: AZITHROMYCIN 500 MG in DEXTROSE 5% IN WATER 250 ML 250 MG IV (00:44)
[2023-05-15] MEDS: CEFAZOLIN 2 GM/100 ML PREMIX 100 ML IV (01:05)
[2023-05-15] MEDS: ACETAMINOPHEN IV 1,000 MG/100 ML VIAL 400 MG IV (01:23)
--- NOTE | 2023-05-15 01:24 | SUR.OPER ---
Supine on Padded OR bed, head on pillow, safety belt at thigh, arms secured on padded arm boards at <90 degrees abduction. Bump under right buttock. Legs uncrossed with pillow under knees, gel pad to heels, tape over blanket to lower legs.
--- NOTE | 2023-05-15 01:44 | SUR.OPER ---
viable baby girl born at 0128. placenta delivered at 0131, cord blood and placenta sent to OB with OB rn
[2023-05-15 02:15] VITALS: BP 98/74; PULSE 98; RESP 11; TEMP 36.7; O2SAT 99
[2023-05-15 02:18] VITALS: BP 101/67; PULSE 102; RESP 11; O2SAT 99
--- NOTE | 2023-05-15 02:19 | PM.OBCS.1 ---
Operative Date/Time/Diagnoses Date of procedure: 05/15/23 Time of procedure: 01:19 Pre-op diagnosis: 1. Cota intrauterine gestation at 39+3 weeks 2. Arrest of dilation 3. Rh negative status Post-op diagnosis: same Procedure & Clinicians Procedure: Primary low transverse section Same procedure as scheduled: Yes Indications: 28yo at 39+3 weeks EGA w/ PNC c/b Rh negative, who was admitted on 05/13/23 for prelabor rupture of membranes. Patient remained unchanged at 8cm for 6+ hours with adequate pitocin augmentation, thus she was counseled and consented for PLTCS for arrest of dilation. Surgeon: Valentine See Click Yes if Unassisted: Yes Anesthesia Type: Epidural Operative Notes Findings: Normal-appearing uterus and bilateral fallopian tubes and ovaries. Clear fluid noted with delivery. Delivery productive of a viable female infant in cephalic presentation with APGARS 6/7 and weighing 3308g. Closure Type: primary Applied: Catheter Estimated Blood Loss (mL): 700 Blood products transfused: none Procedure in detail: The risks, benefits, indications and alternatives of the procedure were reviewed with the patient and informed consent was obtained. The patient was taken to the operating room where epidural anesthesia was found to be adequate. Sequential compression devices were placed bilaterally for VTE prophylaxis. She was then prepped and draped in the normal, sterile fashion in the dorsal supine position with a leftward tilt. She received 2g Ancef & 500mg Azithromycin for surgical prophylaxis. A Pfannenstiel skin incision was then made with the scalpel and carried through to the underlying layer of fascia. The fascia was incised in the midline and was digitally. The rectus muscles were then at the midline. The peritoneum was identified, and entered digitally. The peritoneal incision was then extended horizontally, superiorly and inferiorly, with good visualization of the bladder. The Diego retractor was then inserted. The vesicouterine peritoneum was then identified, grasped with pick-ups, and entered sharply with Metzenbaum scissors. This incision was then extended laterally and the bladder flap was created digitally. The lower uterine segment was incised in a transverse fashion with the scalpel. The uterine incision was then extended manually in a cephalad/caudad direction. The amniotic sac was artificially ruptured, productive of clear fluid. The infant?s head delivered atraumatically through the hysterotomy without difficulty, followed by the body.? The cord was doubly clamped and cut after a 60sec delay with the handed off to the waiting pediatrics team. The placenta was then removed spontaneously with gentle traction on the umbilical cord. The uterus was then exteriorized and cleared of all clots and debris. The uterine incision was repaired with 0-vicryl in a running, locked fashion. A second layer using 0-monocryl was then used to imbricate the hysterotomy. An additional figure of eight 0-vicryl suture was placed at the right hysterotomy edge with excellent hemostasis achieved. The uterus was returned to the abdomen and the hysterotomy was again noted to be hemostatic. The paracolic gutters were cleared of all clot and debris. The Diego retractor was then removed. The fascia was reapproximated with 0-vicryl in a running fashion. The subcutaneous layer was closed with 3-0 vicryl in simple, interrupted sutures. The skin was closed with 4-0 monocryl in a subcuticular fashion. The incision was then dressed with steri-strips and a pressure dressing was applied. At the completion of the case, a Crede maneuver was performed with good uterine tone and minimal vaginal bleeding noted.? The patient tolerated the procedure well. Sponge, lap and needle counts were correct x3. The patient was taken to the recovery room in stable condition. The patient is a candidate for a trial of labor after . Complications: none Post-operative Condition: stable Disposition: PACU Aftercare: routine postop
[2023-05-15 02:24] VITALS: BP 102/65; PULSE 88; RESP 11; O2SAT 98
[2023-05-15 06:13] LABS: Add Manual Diff / Slide Review NO; Basophils Absolute Auto 100 /uL (0-100); Basophils Percent Auto 0.2 % (0-2); Eosinophils Absolute Auto 0 /uL (0-450); Eosinophils Percent Auto 0.1 % (2-4); Hematocrit 30.7 % (36-46); Hemoglobin 10.4 g/dL (12.0-16.0); Lymphocytes Absolute Auto 1100 /uL (1100-4500); Lymphocytes Percent Auto 4.8 % (25-40); Mean Corpuscular HGB Conc 33.8 % (30-36); Mean Corpuscular Hemoglobin 30.5 PG (26-34); Mean Corpuscular Volume 90.2 fL (80-100); Monocytes Absolute Auto 1600 /uL (0-900); Monocytes Percent Auto 7.2 % (3-14); Neutrophils Absolute Auto 19700 /uL (1500-7000); Neutrophils Percent Auto 87.7 % (50-75); Platelet Count 176 X10^3/uL (150-400); Red Blood Cell Count 3.41 X10^6/uL (4.0-5.2); Red Cell Distribution Width 13.8 % (11.6-14.8); White Blood Cell Count 22.4 X10^3/uL (4.5-11.0)
[2023-05-15] MEDS: KETOROLAC 30 MG/ML VIAL IV ×2 (08:01→14:17)
[2023-05-15] MEDS: ACETAMINOPHEN 325 MG TABLET 650 MG PO ×3 (11:46→21:41)
[2023-05-15] MEDS: RHO(D) IMMUNE GLOBULIN 1,500 UNIT SYRINGE 1500 UNIT IM (15:43)
--- NOTE | 2023-05-15 17:23 | PM.OBPN.1 ---
Subjective - OB Subjective Patient comments: no complaints and pain well controlled [place] baby status: N[facility] ([facility]; currently stable, ongoing eval by Peds ENT/Maxillo-Facial teams) Narrative: POD#0, mother is stable and doing well. Date Patient Seen: 05/15/23 Time Patient Seen: 17:25 Exam Vital Signs (past 8 hours): Oxygen Delivery Method Room Air Const General: cooperative and comfortable Nutritional Appearance: average body habitus Orientation: alert and oriented x3 HENMT Head: normal to inspection, atraumatic and abrasion Ears: hearing grossly normal bilaterally Face and sinus: face symmetric Eyes General: appearance normal, both eyes and all related structures Conjunctivae: conjunctivae normal Sclera: sclerae normal EOM: EOM intact bilaterally Neck Neck: normal visual inspection Resp Effort & Inspection: normal respiratory effort and able to speak in complete sentences Auscultation: clear to auscultation bilaterally Cardio Rate: regular rate Rhythm: regular rhythm Heart Sounds: S1 normal, S2 normal and no murmurs GI Inspection: normal to inspection and incision (Surgical dressing clean and dry) Palpation: soft, no hepatosplenomegaly and tender (Mild, diffuse postsurgical tenderness) Auscultation: hypoactive bowel sounds External Female Exam: other (No significant bleeding noted) Extrem General: no calf tenderness Psych Appearance: grossly normal Mental Status: mental status grossly normal Speech and Movement: speech and movement normal Mood: congruent mood Affect: normal affect Attitude: cooperative Thought Process: normal Thought Content: normal Judgment: judgment good Objective Labs 05/15/23 06:05 Labs: Laboratory Results - last 24 hr 05/15/23 06:05 WBC 22.4 H D RBC 3.41 L Hgb 10.4 L Hct 30.7 L MCV 90.2 MCH 30.5 MCHC 33.8 RDW 13.8 Plt Count 176 Neut % (Auto) 87.7 H Lymph % (Auto) 4.8 L [place] % (Auto) 7.2 Eos % (Auto) 0.1 L Baso % (Auto) 0.2 Neut # (Auto) 62445 H Lymph # (Auto) 1100 [place] # (Auto) 1600 H Eos # (Auto) 0 Baso # (Auto) 100 Maternal Bleed Negative Assessment & Plan Assessment and Plan (1) delivery, delivered, current hospitalization: Status: Acute (2) Rh negative state in antepartum period: Problem details: Infant is Rh+ and mother has received Rhogam Status: Acute Plan day: 0 plan OB: routine postop care Time Spent With Patient Time: Total time spent is greater than 50% in coordination of care (as documented) at patient's floor/unit and/or counseling patient: Time with patient: less than 15 minutes
[2023-05-15] MEDS: IBUPROFEN 600 MG TABLET PO (21:42)
[2023-05-16] MEDS: IBUPROFEN 600 MG TABLET PO ×2 (04:09→09:50)
[2023-05-16] MEDS: ACETAMINOPHEN 325 MG TABLET 650 MG PO ×2 (04:10→09:50)
[2023-05-16] MEDS: PRENATAL VIT,CALC/IRON/FOLIC 1 TABLET 1 TAB PO (09:51)
[2023-05-16] MEDS: DOCUSATE 100 MG CAPSULE PO (09:51)
[2023-05-16] MEDS: FERROUS SULFATE 325 MG TABLET PO (09:51)
--- NOTE | 2023-05-16 09:51 | P.DS_ITS ---
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 She progressed with augmentation throughout the day on 05/15/2023 but experienced a secondary arrest of labor in the 1st stage at 8 cm with the vertex descending only to +1 station. Despite adequate contractions for greater than 4 hours, her exam remained unchanged and early on the morning 1024 underwent primary section by low transverse cervical incision productive of a viable female with Apgars of 6/7 and a weight of 3308 g (7 lb 4.7 oz). Following delivery the required transfer to the MICU at [facility]. The mother however did well with prompt return of bowel and bladder function, she is ambulating independently, tolerating a regular diet, and her pain is well controlled with oral pain medications. She will be discharged at this time to home after counseling regarding precautionary symptoms, limitations activity, medications, and plans for follow-up which will be in 1 week. Discharge medications will include resumption of all pre admission medications as well as oxycodone 5 mg every 4-6 hours as needed for pain, dispense 20 with no refills, and ibuprofen 600 mg p.o. q.6 hours as needed for pain. Peripartum Data Infant Delivery Method: Section Laceration Description: None Episiotomy description: None Procedures: Continuous lumbar epidural Primary section (low transverse cervical) complications: none [place] 1: Gender: Female Disposition of : NICU ([facility]) Discharge Diagnosis (1) delivery, delivered, current hospitalization: Status: Deleted (2) Rh negative state in antepartum period: Status: Deleted Problem Details: Infant is Rh+ and mother has received Rhogam Status at Discharge Cognitive/behavioral status at discharge: oriented Functional status at discharge: independent ambulation Overall status at discharge: patient is progressing back to baseline Time Spent with Patient Time attestation: Total time spent providing and/or coordinating discharge services: Time spent: Less than 30 minutes Objective Labs 05/15/23 06:05 Labs: Laboratory Results - last 24 hr 05/15/23 06:05 Maternal Bleed Negative Exam Vital Signs (past 8 hours): Oxygen Delivery Method Room Air Const General: cooperative and comfortable Nutritional Appearance: average body habitus Orientation: alert and oriented x3 HENMT Head: normal to inspection, atraumatic and abrasion Ears: hearing grossly normal bilaterally Face and sinus: face symmetric Eyes General: appearance normal, both eyes and all related structures Conjunctivae: conjunctivae normal Sclera: sclerae normal EOM: EOM intact bilaterally Neck Neck: normal visual inspection Resp Effort & Inspection: normal respiratory effort and able to speak in complete sentences Auscultation: clear to auscultation bilaterally Cardio Rate: regular rate Rhythm: regular rhythm Heart Sounds: S1 normal, S2 normal and no murmurs GI Inspection: normal to inspection and incision (Surgical dressing clean and dry) Palpation: soft, no hepatosplenomegaly and tender (Mild, diffuse postsurgical tenderness) Auscultation: normal bowel sounds External Female Exam: other (No significant bleeding noted) Extrem General: no calf tenderness Psych Appearance: grossly normal Mental Status: mental status grossly normal Speech and Movement: speech and movement normal Mood: congruent mood Affect: normal affect Attitude: cooperative Thought Process: normal Thought Content: normal Judgment: judgment good Discharge Plan Discharge Plan Patient Disposition: Home Provider Discharge Comment: Please review the written instructions you received when discharged from the hospital. Your follow-up appointment be scheduled for 1 week after delivery and I look forward to seeing you then. If however in the meanwhile you have any issues, concerns, or questions, please contact me either through the office phone at [phone], or via the patient portal. Discharge orders & Medications Prescriptions: New ibuprofen 600 mg Tablet 600 mg PO Q6H Qty: 30 0RF oxycodone 5 mg Tablet 5 mg PO Q4H PRN (Reason: Pain, Moderate (4-6)) Qty: 20 0RF Continued albuterol sulfate 90 mcg/actuation HFA aerosol inhaler 2 puff INHALATION Q4-6H PRN (Reason: asthma) Qty: 8.5 3RF cefdinir 300 mg capsule 300 mg PO BID Qty: 10 0RF Follow up/Referrals: Aki Unger MD [Physician] - (incision check May 23 at 2:45 pm. appointment July 01 at 2:00 pm. ) Discharge Health Status Multidrug resistant organism: No MDRO Diet/Activity/Treatments Diet: Diet as Tolerated Activity: As tolerated Other treatments: Niit-iir-evvnsam Tylenol may used for additional pain. Enws-ygr-pmnoich stool softeners and/or MiraLax may be used as needed constipation. Skin/Wound/Dressing Care Report to your healthcare provider any signs of infection, such as:: chills, fever, increased pain, unusual drainage and unusual redness Dressing: Dressing will be removed time of your one-week postop visit Visit Report/Discharge Packet Instructions: DI for , DI for Depression, DI for and Nipple Soreness, DI for Prescription Opioid Use Stand Alone Forms: Discharge: Care Discharge Data Primary Care Provider: Rebecca Alvarenga
== END 2023-05-16 11:00 | disposition home or self-care (01) | DRG 788 ==
PROVIDERS: Admitting Provider Family Medicine; PCP Family Medicine; Referring Provider Student in an Organized Health Care Education/Training Program; Visit Provider Family Medicine
PROC: 10D00Z1 Extraction of Products of Conception, Low, Open Approach (ICD-10-PCS; CPT 59514; principal; 2023-05-15 02:00)
DX: O61.0 Failed medical induction of labor (principal); Z37.0 Single live birth; Z3A.39 39 weeks gestation of pregnancy
CPT/HCPCS: 36415; 59025; 59050; 59510; 59514; 76815; 85025; 85461; 86850; 86900; 86901; G0379; J0136; J0690; J1885; J2274; J2590; J2704; J2790; J3010

== ENCOUNTER → 2023-05-23 17:09 | Outpatient (CLI) | payer BC, SELFPAY | PROVIDERS: PCP Family Medicine; Visit Provider Obstetrics & Gynecology | DX: R82.998 Other abnormal findings in urine (principal); R31.9 Hematuria, unspecified | CPT/HCPCS: 87086 ==

== ENCOUNTER → 2024-07-28 10:25 | Outpatient (CLI) | payer BC, SELFPAY ==
[2024-07-28 13:56] LABS: COVID-19 CEPHEID 4-PLEX PCR POSITIVE (Negative); Influenza A - CEPHEID Flu A NEGATIVE (NEGATIVE); Influenza B - CEPHEID Flu B NEGATIVE (NEGATIVE); Respiratory Syncytial Virus Negative (Negative)
== END ==
LOC: LAB 10:25
PROVIDERS: PCP Family Medicine; Visit Provider Physician Assistant
DX: J06.9 Acute upper respiratory infection, unspecified (principal)
CPT/HCPCS: 0241U